=== PATIENT | female | born 1945 | race Hispanic/Latino ===

== ENCOUNTER 2022-04-18 12:30 | Inpatient (IN) | payer OTHER ==
[2022-04-18 12:52] LABS: Bilirubin Neg (Negative); Blood, Urine 250 (Negative); Clarity Slightly Cloudy (Clear); Glucose, Urine (Dipstick) 50 mg/dL (Negative); Ketone, Urine Negative (Negative); Leukocyte 500 (Negative); Nitrite Negative (Negative); Protein, Urine (Dipstick) 500 mg/dl (Neg-Trace); Specific Gravity, Urine 1.015 (1.002-1.036); Urobilinogen Normal mg/dL (Less than 2)
[2022-04-18 13:03] LABS: Squamous Epithelial 0-3 HPF (0-3); Transitional Epithelial 0-3 HPF (None Seen); WBC/HPF Greater Than 50 HPF (0-3)
[2022-04-18 13:04] LABS: Bacteria/HPF 1+ HPF (None Seen)
[2022-04-18 13:34] LABS: #Basophils 0.1 10x3/uL (0.0-0.2); #Eosinphils 0.2 10x3/uL (0.0-0.5); #Monocytes 0.5 10x3/uL (0.0-1.1); #Neutrophils 9.3 10x3/uL (1.5-8.4); %Basophils 0.4 % (0.0-2.0); %Eosinophils 1.3 % (0.0-6.0); %Lymphocytes 17.6 % (18.0-47.0); %Monocytes 4.4 % (0.0-10.0); %Neutrophils 75.7 % (40.0-75.0); Hemoglobin 7.3 g/dL (12.0-15.5); Mean Corpuscular HGB CONC 32.9 g/dL (32.0-36.0); Mean Corpuscular Hemoglobin 30.3 pg (27.0-33.0); Mean Corpuscular Volume 92.1 fl (81.6-98.3); Mean Platelet Volume 9.7 fl (7.4-10.4); Platelet Count 392 10x3/uL (150-450); RBC Distribution Width 13.9 % (11.5-14.5); Red Blood Cell (RBC) Count 2.41 10x6/uL (3.90-5.03); White Blood Cell (WBC) Count 12.2 10x3/uL (3.5-10.5)
[2022-04-18 13:35] LABS: SARS-CoV-2 NAA Rapid Test Not Detected (NotDetected)
[2022-04-18 13:48] LABS: INR-International Normal Ratio 1.1; Prothrombin Time 11.4 sec (9.5-12.1)
[2022-04-18 13:51] LABS: ALT (SGPT) Less than 6 U/L (8-55); AST (SGOT) 10 U/L (5-34); Albumin 2.8 g/dL (3.4-4.8); Alkaline Phosphatase 69 U/L (40-110); Anion Gap 11 mmol/L (10-20); BUN (Urea Nitrogen) 31 mg/dL (9.8-20.1); Bilirubin, Total 0.2 mg/dL (0.2-1.2); Calc. Creatinine Clearance 0 mL/min (70-130); Calcium 8.3 mg/dL (7.8-10.44); Carbon Dioxide 17 mmol/L (23-31); Chloride 107 mmol/L (98-107); Estimated GFR 23; Globulin 2.8 g/dL (2.4-3.5); Glucose 236 mg/dL (83-110); Potassium 4.7 mmol/L (3.5-5.1); Protein, Total 5.6 g/dL (5.8-8.1); Sodium 130 mmol/L (136-145)
[2022-04-18 14:19] LABS: CKMB 3.2 ng/mL (0-6.6)
[2022-04-18] MEDS ORDERED: hydrALAZINE 20 MG/ML VIAL SLOW IVP PRN (16:46)
[2022-04-18] MEDS ORDERED: Acetaminophen 325 MG TAB PO PRN (17:45)
[2022-04-18] MEDS ORDERED: Ondansetron ODT 4 MG TAB PO PRN (17:45)
[2022-04-18] MEDS ORDERED: Dextrose 50% Abboject 50 ML SYRINGE SLOW IVP PRN (17:48)
[2022-04-18] MEDS ORDERED: Dextrose 5% in Water 1,000 ML IV PRN (17:48)
[2022-04-18 18:10] VITALS: BMI 22.1
[2022-04-18] MEDS ORDERED: Cefepime 2 GM in Sodium Chloride 0.9% 100 ML IVPB SCH ×2 (20:00→23:00)
[2022-04-18 20:06] LABS: Troponin I 0.089 ng/mL (< 0.028)
[2022-04-18] MEDS ORDERED: Atorvastatin Calcium 40 MG TAB PO SCH (21:00)
[2022-04-18] MEDS ORDERED: Cefepime 1 GM in Sodium Chloride 0.9% 100 ML IVPB SCH (21:00)
[2022-04-18] MEDS: Lantus 1000 UNITS/10 ML VIAL SC SCH (21:07)
[2022-04-18] MEDS: Atorvastatin Calcium 40 MG TAB PO SCH (21:07)
[2022-04-19] MEDS ORDERED: Gabapentin 300 MG CAP PO SCH (00:30)
[2022-04-19 04:26] LABS: #Eosinphils 0.1 10x3/uL (0.0-0.5); #Monocytes 0.4 10x3/uL (0.0-1.1); #Neutrophils 4.3 10x3/uL (1.5-8.4); %Basophils 0.6 % (0.0-2.0); %Eosinophils 1.6 % (0.0-6.0); %Lymphocytes 29.7 % (18.0-47.0); %Monocytes 6.3 % (0.0-10.0); %Neutrophils 61.5 % (40.0-75.0); Hemoglobin 8.5 g/dL (12.0-15.5); Mean Corpuscular HGB CONC 32.6 g/dL (32.0-36.0); Mean Corpuscular Hemoglobin 29.6 pg (27.0-33.0); Mean Corpuscular Volume 90.9 fl (81.6-98.3); Mean Platelet Volume 9.4 fl (7.4-10.4); Platelet Count 391 10x3/uL (150-450); RBC Distribution Width 14.2 % (11.5-14.5); Red Blood Cell (RBC) Count 2.87 10x6/uL (3.90-5.03); White Blood Cell (WBC) Count 6.9 10x3/uL (3.5-10.5)
[2022-04-19 04:43] LABS: Anion Gap 11 mmol/L (10-20); BUN (Urea Nitrogen) 28 mg/dL (9.8-20.1); Calc. Creatinine Clearance 21 mL/min (70-130); Calcium 8.5 mg/dL (7.8-10.44); Carbon Dioxide 20 mmol/L (23-31); Chloride 113 mmol/L (98-107); Cholesterol 114 mg/dl (< 200 Desired); Estimated GFR 25; Glucose 246 mg/dL (83-110); HDL Cholesterol 23 mg/dL (>60 Neg Risk); LDL Cholesterol, Calculated 66 mg/dL; Potassium 5.1 mmol/L (3.5-5.1); Sodium 139 mmol/L (136-145); Triglycerides 127 mg/dL (Less than 150)
[2022-04-19] MEDS: HumaLOG 300 UNITS/3 ML VIAL SC PRN ×2 (05:45→13:15)
[2022-04-19] MEDS: Levothyroxine Sodium 100 MCG TAB PO SCH (05:45)
[2022-04-19] MEDS: Levothyroxine Sodium 75 MCG TAB PO SCH (05:45)
[2022-04-19] MEDS: Clopidogrel Bisulfate 75 MG TAB PO SCH (08:19)
[2022-04-19] MEDS: Cefepime 1 GM in Sodium Chloride 0.9% 100 ML IVPB SCH ×2 (08:19→21:31)
[2022-04-19] MEDS: Aspirin 81 mg Enteric Coated Tablet PO SCH (08:19)
[2022-04-19] MEDS: Lantus 1000 UNITS/10 ML VIAL SC SCH ×2 (08:20→21:30)
[2022-04-19] MEDS ORDERED: Aspirin 325 mg Enteric Coated Tablet PO SCH (09:00)
[2022-04-19] MEDS ORDERED: Pantoprazole 40 MG GRANULES PACKET PO SCH (09:00)
[2022-04-19] MEDS: Gabapentin 300 MG CAP PO SCH (21:31)
[2022-04-19] MEDS: Atorvastatin Calcium 40 MG TAB PO SCH (21:32)
[2022-04-19] MEDS: levETIRAcetam 500 MG TAB PO SCH (21:32)
[2022-04-20 04:52] LABS: Anion Gap 10 mmol/L (10-20); BUN (Urea Nitrogen) 26 mg/dL (9.8-20.1); Calc. Creatinine Clearance 23 mL/min (70-130); Calcium 8.7 mg/dL (7.8-10.44); Carbon Dioxide 21 mmol/L (23-31); Chloride 111 mmol/L (98-107); Estimated GFR 27; Glucose 151 mg/dL (83-110); Sodium 137 mmol/L (136-145)
[2022-04-20 04:58] LABS: #Eosinphils 0.2 10x3/uL (0.0-0.5); #Monocytes 0.6 10x3/uL (0.0-1.1); #Neutrophils 3.6 10x3/uL (1.5-8.4); %Basophils 0.4 % (0.0-2.0); %Eosinophils 2.8 % (0.0-6.0); %Lymphocytes 37.3 % (18.0-47.0); %Neutrophils 51.2 % (40.0-75.0); Hemoglobin 8.8 g/dL (12.0-15.5); Mean Corpuscular HGB CONC 32.6 g/dL (32.0-36.0); Mean Corpuscular Hemoglobin 29.8 pg (27.0-33.0); Mean Corpuscular Volume 91.5 fl (81.6-98.3); Mean Platelet Volume 9.7 fl (7.4-10.4); Platelet Count 358 10x3/uL (150-450); RBC Distribution Width 14.6 % (11.5-14.5); Red Blood Cell (RBC) Count 2.95 10x6/uL (3.90-5.03); White Blood Cell (WBC) Count 7.1 10x3/uL (3.5-10.5)
[2022-04-20] MEDS: Levothyroxine Sodium 75 MCG TAB PO SCH ×2 (06:18→06:32)
[2022-04-20] MEDS: Levothyroxine Sodium 100 MCG TAB PO SCH ×2 (06:18→06:33)
[2022-04-20] MEDS: levETIRAcetam 500 MG TAB PO SCH ×2 (08:49→20:12)
[2022-04-20] MEDS: Aspirin 81 mg Enteric Coated Tablet PO SCH (08:49)
[2022-04-20] MEDS: Clopidogrel Bisulfate 75 MG TAB PO SCH (08:49)
[2022-04-20] MEDS: Cefepime 1 GM in Sodium Chloride 0.9% 100 ML IVPB SCH ×2 (08:52→20:10)
[2022-04-20] MEDS: Lantus 1000 UNITS/10 ML VIAL SC SCH ×2 (08:53→20:15)
[2022-04-20] MEDS ORDERED: Cefepime 1 GM VIAL ONE (08:55)
[2022-04-20] MEDS ORDERED: Carvedilol 25 MG TAB PO SCH (17:00)
[2022-04-20] MEDS ORDERED: Dextrose 50% Abboject 50 ML SYRINGE ONE (18:59)
[2022-04-20] MEDS: Atorvastatin Calcium 40 MG TAB PO SCH (20:10)
[2022-04-20] MEDS: Gabapentin 300 MG CAP PO SCH (20:11)
[2022-04-21 04:46] LABS: #Eosinphils 0.1 10x3/uL (0.0-0.5); #Monocytes 0.4 10x3/uL (0.0-1.1); #Neutrophils 5.1 10x3/uL (1.5-8.4); %Basophils 0.5 % (0.0-2.0); %Eosinophils 1.7 % (0.0-6.0); %Lymphocytes 25.7 % (18.0-47.0); %Monocytes 5.7 % (0.0-10.0); %Neutrophils 66.3 % (40.0-75.0); Mean Corpuscular HGB CONC 32.8 g/dL (32.0-36.0); Mean Corpuscular Volume 91.6 fl (81.6-98.3); Mean Platelet Volume 9.6 fl (7.4-10.4); Platelet Count 344 10x3/uL (150-450); RBC Distribution Width 14.3 % (11.5-14.5); Red Blood Cell (RBC) Count 3.33 10x6/uL (3.90-5.03); White Blood Cell (WBC) Count 7.7 10x3/uL (3.5-10.5)
[2022-04-21 05:00] LABS: Anion Gap 10 mmol/L (10-20); BUN (Urea Nitrogen) 23 mg/dL (9.8-20.1); Calc. Creatinine Clearance 23 mL/min (70-130); Calcium 8.9 mg/dL (7.8-10.44); Carbon Dioxide 24 mmol/L (23-31); Chloride 115 mmol/L (98-107); Estimated GFR 27; Glucose 157 mg/dL (83-110); Potassium 5.3 mmol/L (3.5-5.1); Sodium 144 mmol/L (136-145)
[2022-04-21] MEDS: Levothyroxine Sodium 100 MCG TAB PO SCH (05:25)
[2022-04-21] MEDS: Levothyroxine Sodium 75 MCG TAB PO SCH (05:25)
[2022-04-21] MEDS: HumaLOG 300 UNITS/3 ML VIAL SC PRN ×2 (05:45→16:11)
[2022-04-21] MEDS ORDERED: Carvedilol 25 MG TAB PO SCH ×2 (06:00→17:00)
[2022-04-21] MEDS: Clopidogrel Bisulfate 75 MG TAB PO SCH (08:29)
[2022-04-21] MEDS: Lantus 1000 UNITS/10 ML VIAL SC SCH ×2 (08:29→21:10)
[2022-04-21] MEDS: Aspirin 81 mg Enteric Coated Tablet PO SCH (08:29)
[2022-04-21] MEDS: Cefepime 1 GM in Sodium Chloride 0.9% 100 ML IVPB SCH ×2 (08:29→21:01)
[2022-04-21] MEDS: levETIRAcetam 500 MG TAB PO SCH ×2 (08:29→21:04)
[2022-04-21] MEDS ORDERED: Cefepime 1 GM VIAL ONE (08:30)
[2022-04-21 10:52] LABS: Anion Gap 8 mmol/L (10-20); BUN (Urea Nitrogen) 23 mg/dL (9.8-20.1); Calc. Creatinine Clearance 26 mL/min (70-130); Carbon Dioxide 24 mmol/L (23-31); Chloride 114 mmol/L (98-107); Estimated GFR 31; Glucose 145 mg/dL (83-110); Potassium 4.7 mmol/L (3.5-5.1); Sodium 141 mmol/L (136-145)
[2022-04-21] MEDS: Gabapentin 300 MG CAP PO SCH (21:03)
[2022-04-21] MEDS: Atorvastatin Calcium 40 MG TAB PO SCH (21:04)
[2022-04-22 05:03] LABS: #Basophils 0.1 10x3/uL (0.0-0.2); #Eosinphils 0.2 10x3/uL (0.0-0.5); #Monocytes 0.4 10x3/uL (0.0-1.1); %Basophils 0.7 % (0.0-2.0); %Lymphocytes 35.7 % (18.0-47.0); %Neutrophils 54.5 % (40.0-75.0); Hemoglobin 9.2 g/dL (12.0-15.5); Mean Corpuscular HGB CONC 31.8 g/dL (32.0-36.0); Mean Corpuscular Volume 94.1 fl (81.6-98.3); Platelet Count 337 10x3/uL (150-450); RBC Distribution Width 14.2 % (11.5-14.5); Red Blood Cell (RBC) Count 3.07 10x6/uL (3.90-5.03); White Blood Cell (WBC) Count 7.3 10x3/uL (3.5-10.5)
[2022-04-22 05:09] LABS: Anion Gap 11 mmol/L (10-20); BUN (Urea Nitrogen) 20 mg/dL (9.8-20.1); Calc. Creatinine Clearance 24 mL/min (70-130); Calcium 8.8 mg/dL (7.8-10.44); Carbon Dioxide 23 mmol/L (23-31); Chloride 115 mmol/L (98-107); Estimated GFR 28; Glucose 111 mg/dL (83-110); Sodium 144 mmol/L (136-145)
[2022-04-22] MEDS: Levothyroxine Sodium 75 MCG TAB PO SCH (05:47)
[2022-04-22] MEDS: Levothyroxine Sodium 100 MCG TAB PO SCH (05:47)
[2022-04-22] MEDS ORDERED: Carvedilol 25 MG TAB PO SCH ×2 (06:15→17:00)
[2022-04-22] MEDS: Clopidogrel Bisulfate 75 MG TAB PO SCH (09:17)
[2022-04-22] MEDS: Aspirin 81 mg Enteric Coated Tablet PO SCH (09:18)
[2022-04-22] MEDS: Lantus 1000 UNITS/10 ML VIAL SC SCH (09:18)
[2022-04-22] MEDS: Cefepime 1 GM in Sodium Chloride 0.9% 100 ML IVPB SCH (09:18)
[2022-04-22] MEDS: levETIRAcetam 500 MG TAB PO SCH (09:18)
[2022-04-22] MEDS ORDERED: hydrALAZINE 25 MG TAB PO SCH ×2 (09:45→15:00)
[2022-04-22 13:52] VITALS: BP 170/77; TEMP 98
== END 2022-04-22 16:50 | DRG 64 ==
LOC: CSHERS 12:30 → CSHTELE 16:34 → UNDOADMOB 16:34 → OBSVTOIN 16:34 → INTOOBSV 16:34 → CSHTELE 17:16 → OBSVTOIN 04-19 10:29
PROVIDERS: ADMIT Internal Medicine; ATTEND Internal Medicine
PROC: 30233N1 Transfusion of Nonautologous Red Blood Cells into Peripheral Vein, Percutaneous Approach (ICD-10-PCS; principal; 2022-04-18)
DX: I63.412 Cerebral infarction due to embolism of left middle cerebral artery (principal); A41.9 Sepsis, unspecified organism; T83.511A Infection and inflammatory reaction due to indwelling urethral catheter, initial encounter; N39.0 Urinary tract infection, site not specified; G81.94 Hemiplegia, unspecified affecting left nondominant side; I13.0 Hypertensive heart and chronic kidney disease with heart failure and stage 1 through stage 4 chronic kidney disease, or unspecified chronic kidney disease; I50.32 Chronic diastolic (congestive) heart failure; N18.4 Chronic kidney disease, stage 4 (severe); E87.2 Acidosis; N17.9 Acute kidney failure, unspecified; Z20.822 Contact with and (suspected) exposure to COVID-19; Z66 Do not resuscitate; E03.9 Hypothyroidism, unspecified; E11.22 Type 2 diabetes mellitus with diabetic chronic kidney disease; E78.5 Hyperlipidemia, unspecified; D63.1 Anemia in chronic kidney disease; Y84.6 Urinary catheterization as the cause of abnormal reaction of the patient, or of later complication, without mention of misadventure at the time of the procedure; R33.9 Retention of urine, unspecified; K21.9 Gastro-esophageal reflux disease without esophagitis; R29.703 NIHSS score 3; R29.810 Facial weakness; F32.A Depression, unspecified; E87.5 Hyperkalemia; E11.42 Type 2 diabetes mellitus with diabetic polyneuropathy; I25.10 Atherosclerotic heart disease of native coronary artery without angina pectoris; I25.2 Old myocardial infarction; Z95.1 Presence of aortocoronary bypass graft; Z88.5 Allergy status to narcotic agent; Z79.899 Other long term (current) drug therapy; Z79.890 Hormone replacement therapy; Z79.82 Long term (current) use of aspirin; Z79.4 Long term (current) use of insulin; Z90.710 Acquired absence of both cervix and uterus; Z98.49 Cataract extraction status, unspecified eye; Z79.02 Long term (current) use of antithrombotics/antiplatelets
CPT/HCPCS: 36415; 36416; 36430; 70450; 70551; 76770; 80048; 80053; 80061; 81003; 81015; 82553; 84484; 85025; 85610; 85730; 86850; 86900; 86901; 93005; 93010; 93306; 93880; 94760; 96374; 96376; 97139; G0378; J0692; J1815; J3490; J7999; P9016

== ENCOUNTER 2022-09-28 09:33 | Day surgery (SDC) | payer OTHER ==
[2022-09-09 15:42] VITALS: BMI 23.0
[~2022-09-28 09:33] MED LIST: Lidocaine 1% PF 5 ML VIAL ONE; PROPOFOL 40 ML ONE
[2022-09-28] MEDS ORDERED: Labetalol HCl 100 MG/20 ML VIAL ONE (13:10)
== END 2022-09-28 14:35 | disposition admitted as inpatient to this hospital (09) ==
LOC: CSHSDC 09:33
PROVIDERS: ATTEND Internal Medicine Gastroenterology
PROC: 0DJD8ZZ Inspection of Lower Intestinal Tract, Via Natural or Artificial Opening Endoscopic (ICD-10-PCS; principal; 2022-09-28)
DX: Z12.11 Encounter for screening for malignant neoplasm of colon (principal); K57.30 Diverticulosis of large intestine without perforation or abscess without bleeding; K64.8 Other hemorrhoids; I10 Essential (primary) hypertension; E78.5 Hyperlipidemia, unspecified; I25.10 Atherosclerotic heart disease of native coronary artery without angina pectoris; E03.9 Hypothyroidism, unspecified; K21.9 Gastro-esophageal reflux disease without esophagitis; E11.9 Type 2 diabetes mellitus without complications; F41.9 Anxiety disorder, unspecified; Z86.73 Personal history of transient ischemic attack (TIA), and cerebral infarction without residual deficits; Z88.5 Allergy status to narcotic agent
CPT/HCPCS: 82962; G0121; 36416; J2704

== ENCOUNTER 2022-09-28 14:37 | Emergency (ER) | payer OTHER ==
[2022-09-28 16:13] LABS: #Eosinphils 0.1 10x3/uL (0.0-0.5); #Monocytes 0.3 10x3/uL (0.0-1.1); #Neutrophils 3.3 10x3/uL (1.5-8.4); %Basophils 0.7 % (0.0-2.0); %Lymphocytes 35.1 % (18.0-47.0); %Monocytes 5.8 % (0.0-10.0); %Neutrophils 56.2 % (40.0-75.0); Hemoglobin 9.7 g/dL (12.0-15.5); Mean Corpuscular HGB CONC 32.6 g/dL (32.0-36.0); Mean Corpuscular Hemoglobin 28.5 pg (27.0-33.0); Mean Corpuscular Volume 87.6 fl (81.6-98.3); Mean Platelet Volume 11.6 fl (7.4-10.4); Platelet Count 205 10x3/uL (150-450); RBC Distribution Width 14.6 % (11.5-14.5); White Blood Cell (WBC) Count 5.9 10x3/uL (3.5-10.5)
[2022-09-28 16:21] LABS: ALT (SGPT) 8 U/L (8-55); AST (SGOT) 14 U/L (5-34); Albumin 3.7 g/dL (3.4-4.8); Alkaline Phosphatase 84 U/L (40-110); Anion Gap 13 mmol/L (10-20); BUN (Urea Nitrogen) 31 mg/dL (9.8-20.1); Bilirubin, Total 0.5 mg/dL (0.2-1.2); Calc. Creatinine Clearance 0 mL/min (70-130); Calcium 9.4 mg/dL (7.8-10.44); Carbon Dioxide 22 mmol/L (23-31); Chloride 111 mmol/L (98-107); Estimated GFR 29; Globulin 3.1 g/dL (2.4-3.5); Glucose 153 mg/dL (83-110); Potassium 3.6 mmol/L (3.5-5.1); Protein, Total 6.8 g/dL (5.8-8.1); Sodium 142 mmol/L (136-145)
[2022-09-28 16:44] LABS: CKMB 2.1 ng/mL (0-6.6)
[2022-09-28] MEDS ORDERED: Enoxaparin Sodium 60 MG/0.6 ML SYRINGE ONE (18:14)
[2022-09-28] MEDS ORDERED: Aspirin Chewable 81 MG TAB ONE (18:14)
[2022-09-28] MEDS ORDERED: Metoprolol Tartrate 5 MG/5 ML VIAL ONE (18:15)
== END 2022-09-28 20:13 | disposition short-term general hospital (02) ==
LOC: CSHERS 14:37
DX: I21.4 Non-ST elevation (NSTEMI) myocardial infarction (principal); I25.10 Atherosclerotic heart disease of native coronary artery without angina pectoris; E03.9 Hypothyroidism, unspecified; K21.9 Gastro-esophageal reflux disease without esophagitis; E11.9 Type 2 diabetes mellitus without complications; I10 Essential (primary) hypertension; E78.5 Hyperlipidemia, unspecified; Z79.899 Other long term (current) drug therapy
CPT/HCPCS: 36415; 71045; 80053; 82553; 83880; 84484; 85025; 93005; 96372; 96374; J1650

== ENCOUNTER 2024-02-13 14:12 | Inpatient (IN) | payer MEDICARE ==
[2024-02-13] MEDS ORDERED: Acetaminophen 650 MG Suppository PR PRN (14:53)
[2024-02-13] MEDS ORDERED: Ondansetron ODT 4 MG TAB PO PRN (14:53)
[2024-02-13] MEDS ORDERED: Ondansetron PF 4 MG/2 ML Vial IVP PRN (14:53)
[2024-02-13] MEDS ORDERED: Dextrose 5% in Water 1,000 ML IV PRN (15:10)
[2024-02-13] MEDS ORDERED: Glucagon 1 MG/ML KIT IM PRN (15:10)
[2024-02-13] MEDS ORDERED: Dextrose 50% Abboject 50 ML SYRINGE SLOW IVP PRN (15:10)
[2024-02-13] MEDS ORDERED: Bisacodyl 5 MG TAB PO PRN (15:20)
[2024-02-13] MEDS ORDERED: Senokot S 8.6-50 MG TAB PO PRN (15:20)
[2024-02-13 15:32] LABS: Actual Bicarbonate (HCO3a) 19.8 mEq/L (22-28); Analyzer IN Cardio CS ICU; CO2 Tension 35.5 mmHg (35.0-45.0); Calcium, Ionized (arterial) 1.19 mmol/L (1.12-1.30); Carboxyhemoglobin (COHb) 0.5 gm% (0.0-3.0); Hematocrit-ABG 28 % (36.0-47.0); Hemoglobin (Hb) 9.5 g/dL (12.0-16.0); O2 Tension (PaO2), arterial 78.6 mmHg (> 70.0); Potassium - ABG Lab 3.84 mmol/L (3.70-5.30); Puncture Site RRA; pH, Arterial 7.365 (7.35-7.45)
[2024-02-13 15:34] LABS: ALV-art Gradient 26.755 mmHg (0-20)
[2024-02-13 15:41] VITALS: BMI 25.4
[2024-02-13] MEDS: Ferrous Sulfate 325 MG TAB PO SCH (16:45)
[2024-02-13] MEDS: cefTRIAXone\\ROCEPHIN 2 GM in Sodium Chloride 0.9% 100 ML IVPB SCH (16:45)
[2024-02-13] MEDS: Heparin 5,000 UNITS/ML VIAL SC SCH (16:45)
[2024-02-13] MEDS: Furosemide 40 MG (4 mL) VIAL SLOW IVP SCH (16:46)
[2024-02-13] MEDS: Cholestyramine/Aspartame 4 gm Packet PO SCH (22:16)
[2024-02-13] MEDS: hydrALAZINE 25 MG TAB PO SCH (22:16)
[2024-02-13] MEDS: Isosorbide Dinitrate 20 MG TAB PO SCH (22:16)
[2024-02-13] MEDS: Famotidine 20 MG TAB PO SCH (22:16)
[2024-02-13] MEDS: Tuberculin PPD 0.1 ML VIAL I-DERMAL SCH (22:23)
[2024-02-14 04:53] LABS: #Basophils 0.04 10x3/uL (0.0-0.2); #Eosinphils 0.15 10x3/uL (0.0-0.5); #Monocytes 0.51 10x3/uL (0.0-1.1); #Neutrophils 4.21 10x3/uL (1.5-8.4); %Basophils 0.7 % (0.0-2.0); %Eosinophils 2.6 % (0.0-6.0); %Lymphocytes 14.4 % (18.0-47.0); %Monocytes 8.9 % (0.0-10.0); %Neutrophils 73.2 % (40.0-75.0); Hematocrit 28.7 % (34.9-44.5); Hemoglobin 8.8 g/dL (12.0-15.5); Mean Corpuscular HGB CONC 30.7 g/dL (32.0-36.0); Mean Corpuscular Hemoglobin 25.3 pg (27.0-33.0); Mean Corpuscular Volume 82.5 fl (81.6-98.3); Mean Platelet Volume 9.8 fl (7.4-10.4); Platelet Count 217 10x3/uL (150-450); RBC Distribution Width 20.2 % (11.5-14.5); Red Blood Cell (RBC) Count 3.48 10x6/uL (3.90-5.03); White Blood Cell (WBC) Count 5.8 10x3/uL (3.5-10.5)
[2024-02-14 04:55] LABS: Anion Gap 13 mmol/L (10-20); BUN (Urea Nitrogen) 65 mg/dL (9.8-20.1); Calc. Creatinine Clearance 16 mL/min (70-130); Calcium 8.6 mg/dL (7.8-10.44); Carbon Dioxide 20 mmol/L (23-31); Cardiac Risk 2.4 (Less than 4.5); Chloride 113 mmol/L (98-107); Cholesterol 111 mg/dl (< 200 Desired); Estimated GFR 16; Glucose 60 mg/dL (83-110); HDL Cholesterol 47 mg/dL (>60 Neg Risk); LDL Cholesterol, Calculated 56 mg/dL; Potassium 3.7 mmol/L (3.5-5.1); Sodium 142 mmol/L (136-145); Triglycerides 40 mg/dL (Less than 150)
[2024-02-14 05:11] LABS: HBsAg Index 0.28 S/CO (0-0.99); Hep B Surf Ag Non-Reactive S/CO (NonReactive)
[2024-02-14] MEDS: Furosemide 40 MG (4 mL) VIAL SLOW IVP SCH (06:34)
[2024-02-14] MEDS: Levothyroxine 150 MCG TAB PO SCH (06:34)
[2024-02-14] MEDS ORDERED: Levothyroxine 150 MCG TAB PO SCH (08:25)
[2024-02-14] MEDS: Cholecalciferol 1,000 UNITS (25 MCG) TAB PO SCH (09:19)
[2024-02-14] MEDS: NIFEdipine XL 90 MG ER.TAB PO SCH (09:21)
[2024-02-14] MEDS: Lantus 1000 UNITS/10 ML VIAL SC SCH (09:22)
[2024-02-14] MEDS: Aspirin 81 mg Enteric Coated Tablet PO SCH (09:23)
[2024-02-14] MEDS: Clopidogrel Bisulfate 75 MG TAB PO SCH (09:24)
[2024-02-14 16:35] LABS: HBSAB Concentration Less than 8.00 mIU/mL; Hep B Core Total Ab NONREACTIVE (NonReactive); Hep B Surf AB NONREACTIVE (NonReactive); Hep C IgG Ab NONREACTIVE S/CO (NonReactive); Hep C Index 0.16 S/CO (0-0.79)
[2024-02-14] MEDS: HumaLOG 300 UNITS/3 ML VIAL SC PRN (16:51)
[2024-02-14] MEDS ORDERED: hydrALAZINE 20 MG/ML VIAL SLOW IVP PRN (17:30)
[2024-02-14] MEDS ORDERED: Labetalol HCl 100 MG/20 ML VIAL SLOW IVP PRN (17:30)
[2024-02-14] MEDS: Atorvastatin Calcium 40 MG TAB PO SCH (21:14)
[2024-02-15] MEDS: Levothyroxine Sodium 100 MCG TAB PO SCH (05:55)
[2024-02-15] MEDS: Levothyroxine Sodium 75 MCG TAB PO SCH (06:00)
[2024-02-15 07:37] LABS: Cardiac Risk 2.6 (Less than 4.5)
[2024-02-15] MEDS: READ PPD TEST SITE PO SCH (21:17)
[2024-02-16 05:56] LABS: #Basophils 0.04 10x3/uL (0.0-0.2); #Eosinphils 0.17 10x3/uL (0.0-0.5); #Monocytes 0.52 10x3/uL (0.0-1.1); #Neutrophils 3.85 10x3/uL (1.5-8.4); %Basophils 0.7 % (0.0-2.0); %Lymphocytes 17.7 % (18.0-47.0); %Monocytes 9.3 % (0.0-10.0); %Neutrophils 69.1 % (40.0-75.0); Hematocrit 27.9 % (34.9-44.5); Hemoglobin 8.5 g/dL (12.0-15.5); Mean Corpuscular HGB CONC 30.5 g/dL (32.0-36.0); Mean Corpuscular Hemoglobin 25.3 pg (27.0-33.0); Mean Platelet Volume 10.2 fl (7.4-10.4); Platelet Count 194 10x3/uL (150-450); RBC Distribution Width 21.1 % (11.5-14.5); Red Blood Cell (RBC) Count 3.36 10x6/uL (3.90-5.03); White Blood Cell (WBC) Count 5.6 10x3/uL (3.5-10.5)
[2024-02-16 05:59] LABS: Anion Gap 15 mmol/L (10-20); BUN (Urea Nitrogen) 62 mg/dL (9.8-20.1); Calc. Creatinine Clearance 16 mL/min (70-130); Calcium 8.9 mg/dL (7.8-10.44); Carbon Dioxide 19 mmol/L (23-31); Chloride 115 mmol/L (98-107); Estimated GFR 15; Glucose 96 mg/dL (83-110); Potassium 3.9 mmol/L (3.5-5.1); Sodium 145 mmol/L (136-145)
[2024-02-16 06:03] LABS: INR-International Normal Ratio 1.1; PTT 32.5 sec (22.0-33.0); Prothrombin Time 12.2 sec (9.5-12.1)
[2024-02-16] MEDS ORDERED: EPINEPHrine 1 MG/ML VIAL ONE (11:02)
[2024-02-16] MEDS ORDERED: Bupivacaine PF 0.5% 30 ML VIAL ONE (11:02)
[2024-02-16] MEDS ORDERED: PHENYLEPHRINE-NS 100 MCG/ML 10 ML SYRINGE ONE (11:10)
[2024-02-16] MEDS ORDERED: Lidocaine 1% PF 5 ML VIAL ONE (11:10)
[2024-02-16] MEDS ORDERED: PROPOFOL 20 ML ONE ×2 (11:10→11:12)
[2024-02-16] MEDS ORDERED: CEFAZOLIN 1 GM VIAL ONE (11:28)
[2024-02-16] MEDS: EPOETIN ALFA-EPBX (ESRD) 10,000 UNITS/ML VIAL IVP SCH (15:22)
[2024-02-17 04:45] LABS: Anion Gap 14 mmol/L (10-20); BUN (Urea Nitrogen) 40 mg/dL (9.8-20.1); Calc. Creatinine Clearance 21 mL/min (70-130); Calcium 8.3 mg/dL (7.8-10.44); Carbon Dioxide 22 mmol/L (23-31); Chloride 111 mmol/L (98-107); Estimated GFR 22; Glucose 159 mg/dL (83-110); Potassium 3.5 mmol/L (3.5-5.1); Sodium 143 mmol/L (136-145)
[2024-02-17 12:27] VITALS: BMI 25.4
[2024-02-17 15:12] VITALS: BP 176/85; TEMP 98.5
[2024-02-18 04:16] LABS: #Basophils 0.05 10x3/uL (0.0-0.2); #Eosinphils 0.22 10x3/uL (0.0-0.5); #Monocytes 0.39 10x3/uL (0.0-1.1); %Eosinophils 4.5 % (0.0-6.0); %Lymphocytes 21.5 % (18.0-47.0); %Monocytes 7.9 % (0.0-10.0); %Neutrophils 64.7 % (40.0-75.0); Hematocrit 30.6 % (34.9-44.5); Mean Corpuscular HGB CONC 29.4 g/dL (32.0-36.0); Mean Corpuscular Hemoglobin 25.1 pg (27.0-33.0); Mean Corpuscular Volume 85.2 fl (81.6-98.3); Mean Platelet Volume 10.1 fl (7.4-10.4); Platelet Count 169 10x3/uL (150-450); RBC Distribution Width 21.2 % (11.5-14.5); Red Blood Cell (RBC) Count 3.59 10x6/uL (3.90-5.03); White Blood Cell (WBC) Count 4.9 10x3/uL (3.5-10.5)
[2024-02-18 04:25] LABS: Anion Gap 14 mmol/L (10-20); BUN (Urea Nitrogen) 43 mg/dL (9.8-20.1); Calc. Creatinine Clearance 20 mL/min (70-130); Calcium 8.5 mg/dL (7.8-10.44); Carbon Dioxide 19 mmol/L (23-31); Chloride 113 mmol/L (98-107); Estimated GFR 20; Glucose 122 mg/dL (83-110); Potassium 3.5 mmol/L (3.5-5.1); Sodium 142 mmol/L (136-145)
[2024-02-18] MEDS ORDERED: Heparin 10,000 UNITS/ 10 ML VIAL CATH PRN (10:56)
[2024-02-18] MEDS: Acetaminophen 325 MG TAB PO PRN (11:59)
== END 2024-02-18 15:00 | disposition home or self-care (01) | DRG 64 ==
LOC: CSHTELE 14:12
PROVIDERS: ADMIT Family Medicine; ATTEND Internal Medicine
PROC: 4A00X4Z Measurement of Central Nervous Electrical Activity, External Approach (ICD-10-PCS; principal; 2024-02-15)
PROC: 0JH63XZ Insertion of Tunneled Vascular Access Device into Chest Subcutaneous Tissue and Fascia, Percutaneous Approach (ICD-10-PCS; 2024-02-16)
PROC: 02HV33Z Insertion of Infusion Device into Superior Vena Cava, Percutaneous Approach (ICD-10-PCS; 2024-02-16)
PROC: B5181ZA Fluoroscopy of Superior Vena Cava using Low Osmolar Contrast, Guidance (ICD-10-PCS; 2024-02-16)
DX: I63.9 Cerebral infarction, unspecified (principal); G93.41 Metabolic encephalopathy; I50.23 Acute on chronic systolic (congestive) heart failure; N18.6 End stage renal disease; I13.2 Hypertensive heart and chronic kidney disease with heart failure and with stage 5 chronic kidney disease, or end stage renal disease; N17.9 Acute kidney failure, unspecified; N39.0 Urinary tract infection, site not specified; D63.1 Anemia in chronic kidney disease; Z66 Do not resuscitate; E11.22 Type 2 diabetes mellitus with diabetic chronic kidney disease; K21.9 Gastro-esophageal reflux disease without esophagitis; E03.9 Hypothyroidism, unspecified; E78.5 Hyperlipidemia, unspecified; I25.10 Atherosclerotic heart disease of native coronary artery without angina pectoris; I95.1 Orthostatic hypotension; I25.2 Old myocardial infarction; Z79.82 Long term (current) use of aspirin; Z98.42 Cataract extraction status, left eye; Z98.41 Cataract extraction status, right eye; Z95.1 Presence of aortocoronary bypass graft; Z90.710 Acquired absence of both cervix and uterus
CPT/HCPCS: 36415; 36416; 36600; 70551; 71045; 80048; 80061; 82140; 82805; 84443; 85025; 85610; 85730; 86580; 86704; 86706; 86803; 87040; 87340; 90935; 94760; 95816; 95819; C1713; C1752; G0257; J0171; J0665; J0690; J0696; J1642; J1644; J1815; J1940; J2704; J3490; Q5105